=== PATIENT | male | born 1930 | race Caucasian/White ===

== ENCOUNTER 2017-08-31 08:11 | Emergency (ER) | payer OTHER, MEDICARE ==
--- NOTE | 2017-08-31 08:22 | EDPHY ---
H & P Time Seen by Provider: 08/31/17 08:17 HPI/ROS: CHIEF COMPLAINT: Fall HISTORY OF PRESENT ILLNESS: The patient is an 79-year-old male in assisted living who presents to the emergency department via EMS after having a mechanical fall. Patient states that he got up from bed this morning because he felt like he had diarrhea. He was sitting on the toilet when he fell off. He states he struck the right side of his head. He had no preceding symptoms. He was not lightheaded or dizzy. No chest pain or shortness of breath. No neck pain. No back pain. No numbness or weakness. No visual change. The patient has had headaches for the past few weeks due to shingles on the right side of his head. Patient was recently hospitalized is for shingles. REVIEW OF SYSTEMS: My complete review of systems is negative except as mentioned in the HPI. Past Medical/Surgical History: Includes polyneuropathy, high cholesterol, angina, anxiety, hypokalemia, GERD, hypertension Physical Exam: Vitals noted. Hypertensive GENERAL: Well-appearing, in no acute distress, alert. HEAD: No evidence of trauma. No hematoma. EYES: PERRLA, EOMI, normal to inspection. ENT: Airway intact, no dental or oral injury, no malocclusion, no hemotympanum , normal external examination. NECK: The trachea is midline. There is no crepitus. The C-spine is nontender. NEXUS criteria is negative (no midline tenderness, no distracting injury, no altered mental status, no recent alcohol use, no focal neurologic deficit). RESPIRATORY: Clear to auscultation bilaterally, no rales, rhonchi or wheezing. There is no crepitus or palpable rib fractures. CVS: Regular rate and rhythm, no rubs, murmurs, or gallops. ABDOMEN: Soft, nontender, nondistended, normal bowel sounds, no bruising or abrasions. Pelvis: Stable. No tenderness palpation. Hips full range of motion. BACK: Normal to inspection, no spinal tenderness, no spinal step off, no notable bruising or abrasions. SKIN: Normal color, warm, dry. No pallor or diaphoresis. EXTREMITIES: Right upper extremity: Atraumatic. No visible signs of trauma. No tenderness palpation. Neurovascular intact distally. Left upper extremity: Atraumatic. No visible signs of trauma. No tenderness palpation. Neurovascular intact distally. Right lower extremity: Atraumatic. No visible signs of trauma. No tenderness palpation. Neurovascular intact distally. Left lower extremity: Atraumatic. No visible signs of trauma. No tenderness palpation. Neurovascular intact distally. NEURO/PSYCH: Alert and oriented x 3, GCS 15, normal mood and affect, normal motor sensory exam. Constitutional: Initial Vital Signs Temperature (C) 36.4 C 08/31/17 08:24 Heart Rate 78 08/31/17 08:24 Respiratory Rate 18 08/31/17 08:24 Blood Pressure 218/108 H 08/31/17 08:24 O2 Sat (%) 97 08/31/17 08:24 O2 Delivery Mode Room Air Allergies/Adverse Reactions: SURINDER Inhibitors Allergy (Verified 08/31/17 08:20) ciprofloxacin Allergy (Verified 08/31/17 08:19) hydrochlorothiazide Allergy (Verified 08/31/17 08:20) Home Medications: Medication Instructions Recorded Amlodipine Besylate 08/31/17 Capsaicin 08/31/17 Cymbalta 08/31/17 LYRICA 08/31/17 Lipitor 08/31/17 Potassium Acetate 08/31/17 Toprol Xl 08/31/17 hydrALAZINE 08/31/17 traMADol 08/31/17 Medical Decision Making - Diagnostics Imaging Results: Imaging Impressions Head CT 08/31/17 08:18 Impression: 1. 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 2. No hemorrhage, mass effect, or definite acute peripheral infarct. 3. Mild to moderate age-related cerebral atrophy with moderate nonspecific hypodensities in the white matter of bilateral cerebral hemispheres. Differential diagnosis includes microvascular ischemic disease, post-infectious/ post-inflammatory sequela, atypical demyelinating disease, or migraine-related sequela. Small white matter lacunar infarcts may also have this appearance. 4. Soft tissue contusion right superior orbital rim. If symptoms worsen, additional imaging may be necessary. Findings discussed with Riana John M.D. at 8:54 hour, 08/31/2017. ED Course/Re-evaluation: In the emergency department I met EMS on arrival. I took report from the act english tutor. The act english tutor states the patient initially did not want to come to the hospital because he had no specific complaints. However, he ultimately agreed to come to our facility. The patient states his head pain has been present since his shingles. Due to the fall on the patient's age head CT, EKG and laboratory studies were ordered. EKG shows normal sinus rhythm, normal rate, first-degree AV block, normal intervals. There are no ST or T-wave abnormalities. 855: CT: Please refer the dictated report by Dr. Pa Cordova. Soft tissue swelling. No acute disease. Old cortical infarct. I rechecked the patient. He was doing well. No new complaints. Patient's laboratory studies are remarkable only for mildly low hematocrit at 37. Patient was given warnings prior to leaving. He will return with worsening symptoms. Differential Diagnosis: My differential includes but is not limited to mechanical fall, ACS, acute DE, dysrhythmia, electrolyte abnormality, sugar abnormality, subarachnoid hemorrhage , subdural hematoma, epidural hematoma - Data Points Laboratory Results: Laboratory Results 08/31/17 09:00 08/31/17 09:00 08/31/17 08/31/17 08/31/17 09:01 09:00 09:00 WBC 5.06 10^3/uL 10^3/uL (3.80-9.50) RBC 3.95 10^6/uL L 10^6/uL (4.40-6.38) Hgb 12.6 g/dL L g/dL (13.7-17.5) Hct 37.4 % L % (40.0-51.0) MCV 94.7 fL fL (81.5-99.8) MCH 31.9 pg pg (27.9-34.1) MCHC 33.7 g/dL g/dL (32.4-36.7) RDW 12.4 % % (11.5-15.2) Plt Count 233 10^3/uL 10^3/uL (150-400) MPV 9.1 fL fL (8.7-11.7) Neut % (Auto) 64.3 % % (39.3-74.2) Lymph % (Auto) 20.4 % % (15.0-45.0) [place] % (Auto) 10.7 % % (4.5-13.0) Eos % (Auto) 3.8 % % (0.6-7.6) Baso % (Auto) 0.6 % % (0.3-1.7) Nucleat RBC Rel Count 0.0 % % (0.0-0.2) Absolute Neuts (auto) 3.26 10^3/uL 10^3/uL (1.70-6.50) Absolute Lymphs (auto) 1.03 10^3/uL 10^3/uL (1.00-3.00) Absolute Monos (auto) 0.54 10^3/uL 10^3/uL (0.30-0.80) Absolute Eos (auto) 0.19 10^3/uL 10^3/uL (0.03-0.40) Absolute Basos (auto) 0.03 10^3/uL 10^3/uL (0.02-0.10) Absolute Nucleated RBC 0.00 10^3/uL 10^3/uL (0-0.01) Immature Gran % 0.2 % % (0.0-1.1) Immature Gran # 0.01 10^3/uL 10^3/uL (0.00-0.10) Sodium 137 mEq/L mEq/L (135-145) Potassium 4.9 mEq/L mEq/L (3.3-5.0) Chloride 101 mEq/L mEq/L (97-110) Carbon Dioxide 25 mEq/l mEq/l (22-31) Anion Gap 11 mEq/L mEq/L (8-16) BUN 17 mg/dL mg/dL (7-23) Creatinine 0.7 mg/dL mg/dL (0.7-1.3) Estimated GFR > 60 Glucose 97 mg/dL mg/dL (70-100) Calcium 9.2 mg/dL mg/dL (8.5-10.4) POC Troponin I 0.01 ng/mL ng/mL (0.00-0.08) Point of Care Test Results: Chemistry 08/31/17 09:01 POC Troponin I 0.01 ng/mL ng/mL (0.00-0.08) Departure - Departure Disposition: Home, Routine, Self-Care Clinical Impression: Fall Qualifiers: Encounter type: initial encounter Qualified Code(s): W19.XXXA - Unspecified fall, initial encounter Diarrhea Qualifiers: Diarrhea type: unspecified type Qualified Code(s): R19.7 - Diarrhea, unspecified Condition: Good Instructions: Head Injury (ED), Acute Diarrhea (ED), Fall Prevention (ED) Additional Instructions: Return with increasing headache, weakness, numbness, vomiting or any other concerns. Referrals: NYDIA KAUR [Primary Care Provider] - As per Instructions
--- NOTE | 2017-08-31 08:48 | CPEKG ---
Heart Rate: 75 RR Interval: 800 P-R Interval: 256 QRSD Interval: 90 QT Interval: 384 QTC Interval: 429 P Nucla: 5 QRS Nucla: -12 T Wave Nucla: 45 EKG Severity - ABNORMAL ECG - EKG Impression: SINUS RHYTHM EKG Impression: FIRST DEGREE AV BLOCK Electronically Signed By: Jose Luis Whitaker 02-Sep-2017 02:39:00
[2017-08-31 09:13] LABS: PLATELET COUNT 233 10^3/uL (150-400)
[2017-08-31 10:18] VITALS: BP 165/78
== END 2017-08-31 11:11 | disposition home or self-care (01) ==
LOC: EDBD → EDUNIT#
DX: R19.7 Diarrhea, unspecified (principal); I10 Essential (primary) hypertension; W18.11XA Fall from or off toilet without subsequent striking against object, initial encounter
CPT/HCPCS: 84484-PO